=== PATIENT | female | born 1960 | race Two or more races ===

== ENCOUNTER 2017-02-24 02:21 | Emergency (ER) | payer MEDICAID ==
[~2017-02-24] VITALS: Ht 165.1 cm; Wt 46.3 kg
[2017-02-24 02:30] VITALS: BP 135/89
--- NOTE | 2017-02-24 02:38 | Emergency Room Report ---
History of Present Illness General Chief Complaint: General Complaint Source: Patient Present Illness HPI Is a 56-year-old female with no significant past medical history. She presents with chief complaint of fever on and off for last 4-5 days. Did not measure. Is subjective in nature. [place] hot and sweaty. Has body pain. No nausea no vomiting. No congestion. Slight cough. Eating drinking without a problem. No urinary complaint. Allergies: Coded Allergies: No Known Allergies (Unverified , 04/27/15) Patient History Past Medical History: none, see triage record, old chart reviewed Past Surgical History: none Pertinent Family History: none Social History: Denies: drug use Last Menstrual Period: Menopause Now: No Immunizations: other Reviewed Nursing Documentation: PMH: Agreed, PSxH: Agreed Nursing Documentation-PMH Past Medical History: No Stated History Hx Hypertension: Yes Review of Systems Constitutional: Reports: chills, fever, sweats Eye: Denies: blurred vision, eye pain ENT: Denies: ear pain, nose congestion, throat swelling Respiratory: Denies: cough, shortness of breath Cardiovascular: Denies: chest pain, palpitations Gastrointestinal: Denies: abdominal pain, diarrhea, nausea, vomiting Musculoskeletal: Denies: back pain, joint pain Skin: Denies: rash Neurological: Denies: headache, numbness Endocrine: Denies: increased thirst, increased urine Hematologic/Lymphatic: Denies: easy bruising All Other Systems: negative except mentioned in HPI Physical Exam Vital Signs Date Time Temp Pulse Resp B/P Pulse Ox O2 Delivery O2 Flow Rate FiO2 02/24/17 02:26 98.8 108 16 182/77 100 Room Air vitals with high blood pressure Sp02 EP Interpretation: reviewed, normal General Appearance: well appearing, no apparent distress, alert Head: normocephalic, atraumatic Eyes: bilateral eye EOMI, bilateral eye PERRL ENT: hearing grossly normal, normal pharynx Neck: full range of motion, supple, no meningismus Respiratory: chest non-tender, lungs clear, normal breath sounds Cardiovascular #1: regular rate, rhythm, no murmur Gastrointestinal: normal bowel sounds, non tender, no mass, no organomegaly, no bruit, non-distended Musculoskeletal: back normal, gait/station normal, normal range of motion Psychiatric: mood/affect normal Skin: warm/dry Medical Decision Making Diagnostic Impression: Primary Impression: UTI (urinary tract infection) Qualified Codes: N30.00 - Acute cystitis without hematuria Additional Impressions: Methamphetamine abuse Weakness generalized ER Course Patient presents with generalize weakness subjective fever or chills. Afebrile here. He does have a urinary tract infection. She also positive for amphetamine. She said she took the medication for pain. This would not explain amphetamine in her system. No evidence of sepsis, dehydration, pneumonia to name a few. We'll discharge home. Lab Results Impression labs unremarkable Last Vital Signs Date Time Temp Pulse Resp B/P Pulse Ox O2 Delivery O2 Flow Rate FiO2 02/24/17 02:26 98.8 108 16 182/77 100 Room Air Status: improved Disposition: HOME, SELF-CARE Condition: Stable Scripts Nitrofurantoin Monohyd/M-Cryst (Nitrofurantoin [place]-Mcr 100 mg) 100 Mg Capsule 100 MG ORAL Q12H, #14 CAP Prov: JESSICA VALDIVIA M.D. 02/24/17 Additional Instructions: Abstain from drugs and alcohol. Followup with your Dr. in 7 days. Increase fluids. Return it worse. JESSICA VALDIVIA M.D. Feb 24, 2017 02:38
[2017-02-24 03:03] LABS: APPEARANCE,URINE CLEAR; KETONES,URINE NEGATIVE (NEGATIVE); LEUKOCYTE ESTERASE ,URINE 1+ (NEGATIVE); NITRITE,URINE POSITIVE (NEGATIVE); PH,URINE 5 (4.5-8.0); PROTEIN,URINE 3+ (NEGATIVE); UROBILINOGEN,URINE 4 MG/DL (0.0-1.0)
[2017-02-24 03:11] LABS: BASOPHILS % (AUTO) 0.7 % (0.0-2.0); EOSINOPHILS % (AUTO) 0.4 % (0.0-3.0); MEAN CORPUSCULAR HGB CONC 32.6 G/DL (32.0-36.0); MEAN CORPUSCULAR VOLUME 83 FL (80-99); MEAN PLATELET VOLUME 10.8 FL (6.5-10.1); MONOCYTES % (AUTO) 6.6 % (1.0-10.0); NEUTROPHILS % (AUTO) 77.3 % (45.0-75.0); PLATELET COUNT 217 K/UL (150-450); RED BLOOD COUNT 4.87 M/UL (4.20-5.40); RED CELL DISTRIBUTION WIDTH 12.6 % (11.6-14.8); WHITE BLOOD COUNT 9.1 K/UL (4.8-10.8)
[2017-02-24 03:16] LABS: BACTERIA,URINE MODERATE /HPF; SQUAMOUS EPITHELIAL CELL,UR FEW /LPF (NONE/OCC)
[2017-02-24] MEDS ORDERED: cefTRIAXone 1 GM in NS 55 ML IVPB ONE (03:45)
[2017-02-24] MEDS ORDERED: MACROBID100 MG ORAL (03:49)
[2017-02-24] MEDS ORDERED: NS 55 ML IV ONE (03:53)
[2017-02-24] MEDS ORDERED: Tubing IV Cassette IV ONE (03:53)
[2017-02-24 04:02] LABS: ANION GAP 12 (5-15); CARBON DIOXIDE 27 mEQ/L (20-30); CHLORIDE 96 mEQ/L (98-107); CREATININE 0.8 mg/dL (0.5-0.9); GLOMERULAR FILTRATION RATE > 60 mL/min (>60); HEMOLYSIS 18; POTASSIUM 4.3 mEQ/L (3.4-4.9); SODIUM 135 mEQ/L (135-145)
[2017-02-24 04:36] VITALS: BP 146/84
== END 2017-02-24 04:37 | disposition home or self-care (01) ==
LOC: EMR 02:37
DX: N39.0 Urinary tract infection, site not specified (principal); F15.10 Other stimulant abuse, uncomplicated; R53.1 Weakness
CPT/HCPCS: 36415; 80048; 80300; 81001; 85025; 87086; 87181; 96374; 99284; J0696